=== PATIENT | male | born 1970 | race American Indian/Alaskan Native ===

== ENCOUNTER 2018-12-10 02:16 | Emergency (ER) | payer MEDICARE ==
--- NOTE | 2018-12-10 02:58 | Emergency Department Report ---
ED Recheck HPI - General Chief Complaint: Anxiety Stated Complaint: ANXIETY/MED REFILL Time Seen by Provider: 12/10/18 02:40 Source: patient, EMS Mode of arrival: Stretcher Limitations: No Limitations - History of Present Illness Initial Comments: PCP: Dr Harper PALM Complaint: medication refill request -: unknown Returns Today for: request for prescription (lisinopril, trazadone) Context: ran out of medication Associated Symptoms: other (anxiety) - Related Data Previous Rx's Medication Instructions Recorded Last Taken Type Zolpidem Tartrate 10 mg PO QHS PRN #15 tablet 03/18/15 Unknown Rx hydrOXYzine PAMOATE [Vistaril] 50 mg PO TID PRN #90 capsule 03/18/15 Unknown Rx Ibuprofen [Motrin 800 MG tab] 800 mg PO Q8HR PRN #30 tablet 03/26/16 Unknown Rx Permethrin [Lice Cream Rinse] 120 ml TP DAILY #1 liquid 03/26/16 Unknown Rx cephALEXin [Keflex] 500 mg PO Q12HR #14 cap 03/26/16 Unknown Rx Permethrin 5% [Acticin 5% CREAM] 1 applicatio TP ONCE #1 tube 04/21/16 Unknown Rx hydrOXYzine HCL [Atarax] 25 mg PO Q6HR PRN #15 tablet 04/21/16 Unknown Rx Lisinopril [Zestril TAB] 20 mg PO QDAY #30 tablet 12/10/18 Unknown Rx traZODone [Desyrel] 100 mg PO QHS #15 tablet 12/10/18 Unknown Rx Allergies Allergy/AdvReac Type Severity Reaction Status Date / Time No Known Allergies Allergy Verified 03/26/16 09:33 ED Review of Systems ROS: Stated complaint: ANXIETY/MED REFILL Other details as noted in HPI Comment: All other systems reviewed and negative Psychiatric: anxiety, other (reports insomnia). denies: auditory hallucinations, visual hallucinations, homicidal thoughts, suicidal thoughts ED Past Medical Hx - Past Medical History Previous Medical History?: Yes Hx Hypertension: Yes Hx CVA: No Hx Heart Attack/AMI: No Hx Congestive Heart Failure: No Hx Diabetes: No Hx Deep Vein Thrombosis: No Hx Pulmonary Embolism: No Hx GERD: No Hx Liver Disease: No Hx Renal Disease: No Hx Sickle Cell Disease: No Hx Arthritis: No Hx Headaches / Migraines: No Hx Seizures: No Hx Kidney Stones: No Hx Psychiatric Treatment: Yes (depression and anxiety) Hx Asthma: No Hx COPD: No Hx Tuberculosis: No Hx Dementia: No Hx HIV: No Additional medical history: 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) - Surgical History Past Surgical History?: Yes Hx Coronary Stent: No Hx Open Heart Surgery: No Hx Pacemaker: No Hx Internal Defibrillator: No Hx Cholecystectomy: No Hx Appendectomy: No Hx Breast Surgery: No Additional Surgical History: Skull surgery secondary to trauma, finger amputation - Social History Smoking Status: Never Smoker Substance Use Type: Alcohol - Medications Home Medications: Home Medications Medication Instructions Recorded Confirmed Last Taken Type Zolpidem Tartrate 10 mg PO QHS PRN #15 tablet 03/18/15 03/26/16 Unknown Rx hydrOXYzine PAMOATE [Vistaril] 50 mg PO TID PRN #90 capsule 03/18/15 03/26/16 Unknown Rx Ibuprofen [Motrin 800 MG tab] 800 mg PO Q8HR PRN #30 tablet 03/26/16 Unknown Rx Permethrin [Lice Cream Rinse] 120 ml TP DAILY #1 liquid 03/26/16 Unknown Rx cephALEXin [Keflex] 500 mg PO Q12HR #14 cap 03/26/16 Unknown Rx Permethrin 5% [Acticin 5% CREAM] 1 applicatio TP ONCE #1 tube 04/21/16 Unknown Rx hydrOXYzine HCL [Atarax] 25 mg PO Q6HR PRN #15 tablet 04/21/16 Unknown Rx Lisinopril [Zestril TAB] 20 mg PO QDAY #30 tablet 12/10/18 Unknown Rx traZODone [Desyrel] 100 mg PO QHS #15 tablet 12/10/18 Unknown Rx ED Physical Exam - General Limitations: No Limitations General appearance: alert, in no apparent distress - Head Head exam: Present: atraumatic, normocephalic - ENT ENT exam: Present: mucous membranes moist - Neck Neck exam: Present: normal inspection - Respiratory Respiratory exam: Present: normal lung sounds bilaterally. Absent: respiratory distress - Cardiovascular Cardiovascular Exam: Present: regular rate, normal rhythm - GI/Abdominal GI/Abdominal exam: Absent: distended - Neurological Exam Neurological exam: Present: alert, oriented X3 - Psychiatric Psychiatric exam: Present: normal affect, normal mood - Skin Skin exam: Present: warm, dry, intact, normal color ED Course Vital Signs 12/10/18 02:32 Temperature 98 F Pulse Rate 80 Respiratory 16 Rate Blood Pressure 142/88 Blood Pressure 142/88 [Right] O2 Sat by Pulse 99 Oximetry Critical care attestation.: If time is entered above; I have spent that time in minutes in the direct care of this critically ill patient, excluding procedure time. ED Disposition Clinical Impression: Medication refill Disposition: - TO HOME OR SELFCARE Is pt being admited?: No Condition: Stable Instructions: Anxiety (ED) Prescriptions: traZODone [Desyrel] 100 mg PO QHS #15 tablet Lisinopril [Zestril TAB] 20 mg PO QDAY #30 tablet Time of Disposition: 02:57
== END 2018-12-10 07:00 | disposition home or self-care (01) ==
LOC: ED 02:16
CPT/HCPCS: 99283